=== PATIENT | female | born 1985 | race Caucasian/White ===

== ENCOUNTER 2018-05-22 17:07 | Emergency (ER) | payer OTHER, MEDICAID ==
[~2018-05-22] VITALS: Ht 157.5 cm; Wt 94.8 kg
[2018-05-22 17:21] VITALS: BP 139/73
--- NOTE | 2018-05-22 19:11 | NUR ---
PT AMBULATED TO BED 3
--- NOTE | 2018-05-22 19:12 | NUR ---
PT STATES SHE NEEDS MED REFILL, GEODONE 80MG. PT HAS APPT WITH PSYCHIATRIST 06/05/2018 BUT NEEDS MEDS UNTIL THEN. NO OTHER COMPLAINTS.
[2018-05-22 19:46] VITALS: BP 140/72
--- NOTE | 2018-05-22 19:46 | NUR ---
Patient discharged with v/s stable. Written and verbal after care instructions given and explained. Patient alert, oriented and verbalized understanding of instructions. Ambulatory with steady gait. All questions addressed prior to discharge. ID band removed. Patient advised to follow up with PMD. Rx of ABIGAIL given. Patient educated on indication of medication including possible reaction and side effects. Opportunity to ask questions provided and answered.
== END 2018-05-22 19:46 | disposition home or self-care (01) ==
LOC: MED 17:07
DX: F20.9 Schizophrenia, unspecified (principal); Z76.0 Encounter for issue of repeat prescription
CPT/HCPCS: 99283; 99284

== ENCOUNTER 2018-07-07 09:20 | Emergency (ER) | payer OTHER ==
[~2018-07-07] VITALS: Ht 157.5 cm; Wt 93.9 kg
[2018-07-07 09:32] VITALS: BP 108/66
--- NOTE | 2018-07-07 09:37 | NUR ---
urine cup handed to pt for sample
--- NOTE | 2018-07-07 09:39 | NUR ---
pt ambulated to er bed 03
--- NOTE | 2018-07-07 09:45 | NUR ---
PT BIB SELF TO THE ED WITH THE [facility] C/O FOUL SMELLING DISCHARGE AND PELVIC PAIN. PT HAS HX OF STD: GONORRHEA, CLAMADIA AND TRICHOMONOSIS. STATES OF HAVING DIARRHEA X2 TODAY. DENIES N/V. DENIES RECENT FEVER. DENIES OTHER PROBLEM AT THIS TIME. STATES PAIN OF 7/10. VSS. ER AWARE.
[2018-07-07] MEDS ORDERED: PHENAZOPYRIDINE 100 MG TAB PO ONE (09:50)
--- NOTE | 2018-07-07 10:16 | NUR ---
PT EVALUATED BY EDGAR ROGERS.
[2018-07-07] MEDS ORDERED: cefTRIAXone 250 MG in LIDOCAINE MPF 1% - 5 mL VIAL 0.9 ML IM ONE (10:30)
[2018-07-07] MEDS ORDERED: AZITHROMYCIN 250 MG TAB PO ONE (10:30)
--- NOTE | 2018-07-07 11:53 | NUR ---
Patient discharged with v/s stable. Written and verbal after care instructions given and explained. Patient alert, oriented and verbalized understanding of instructions. Ambulatory with steady gait. All questions addressed prior to discharge. ID band removed. Patient advised to follow up with PMD. Rx of FLAGYL given. Patient educated on indication of medication including possible reaction and side effects. Opportunity to ask questions provided and answered.
[2018-07-07 11:54] VITALS: BP 123/65
[2018-07-09 06:11] LABS: CHLAMYDIA TRACHOMATIS AMP DNA Negative (Negative)
== END 2018-07-07 11:53 | disposition home or self-care (01) ==
LOC: MED 09:20
DX: N89.8 Other specified noninflammatory disorders of vagina (principal); J45.909 Unspecified asthma, uncomplicated; F20.9 Schizophrenia, unspecified; Z20.2 Contact with and (suspected) exposure to infections with a predominantly sexual mode of transmission; Z88.5 Allergy status to narcotic agent; Z88.8 Allergy status to other drugs, medicaments and biological substances
CPT/HCPCS: 36415; 81002; 81025; 87210; 96372; 99283; J0696; J2001; 87491

== ENCOUNTER 2018-07-30 15:22 | Emergency (ER) | payer OTHER ==
[~2018-07-30] VITALS: Ht 157.5 cm; Wt 92.2 kg
[2018-07-30 15:38] VITALS: BP 150/80
--- NOTE | 2018-07-30 15:58 | NUR ---
PT AMB TO RESTROOM FOR URINE SAMPLE
--- NOTE | 2018-07-30 15:59 | NUR ---
33 Y FEMALE BIB FAMILY C/O RASH X 3 WEEKS, GENERALIZED ABDOMINAL PAIN X 2 WEEKS. +ITCHING RASH COVERS ENTIRE BODY. PT STATES SHE WAS SEEN AT AN URGENT CARE 1 WEEK AGO AND WAS SENT HOME WITH A MEDICATION FOR ITCHING. STATES SHE HAS NO RELIEF. PAIN 10/10 ABDOMINAL. LAST BM TODAY DIARRHEA. BOWEL SOUNDS ACTIVE IN ALL 4 QUADRANTS. ABDOMEN SOFT AND ROUND. VSS AT THSI TIME. ALERT AND ORIENTED. BED IS DOWN, LOCKED, BED RAIL X 1, ERMD TO SEE PT. MED HX: BIPOLAR, SCHIZOPHRENIA, ASTHMA
--- NOTE | 2018-07-30 16:22 | NUR ---
DR MONTIEL AT BEDSIDE TO SEE PT
[2018-07-30 16:41] VITALS: BP 152/76
--- NOTE | 2018-07-30 16:41 | NUR ---
Patient discharged with v/s stable. Written and verbal after care instructions given and explained. Patient alert, oriented and verbalized understanding of instructions. Ambulatory with steady gait. All questions addressed prior to discharge. ID band removed. Patient advised to follow up with PMD. Rx of ZOFRAN, PREDNISONE, MOTRIN given. Patient educated on indication of medication including possible reaction and side effects. Opportunity to ask questions provided and answered. PT GIVEN [facility] ADDRESS AND PHONE NUMBER TO FOLLOW UP WITH.
== END 2018-07-30 16:41 | disposition home or self-care (01) ==
LOC: MED 15:22
DX: R21 Rash and other nonspecific skin eruption (principal); R10.13 Epigastric pain; R11.0 Nausea; F20.9 Schizophrenia, unspecified; F17.200 Nicotine dependence, unspecified, uncomplicated; Z88.5 Allergy status to narcotic agent; Z88.8 Allergy status to other drugs, medicaments and biological substances
CPT/HCPCS: 81002; 81025; 99282; 99283

== ENCOUNTER 2018-09-25 13:23 | Emergency (ER) | payer OTHER ==
[~2018-09-25] VITALS: Ht 157.5 cm; Wt 92.5 kg
[2018-09-25 13:53] VITALS: BP 107/62
--- NOTE | 2018-09-25 14:10 | NUR ---
PATIENT AMBULATED TO ER BED 3.
--- NOTE | 2018-09-25 14:15 | NUR ---
pt c/o abnormal vaginal discharge with cottage cheese like secration. pt was worried about STD. reports constipation and mininal nausea without vomiting; SKIN IS PINK/WARM/DRY; AAOX4 WITH EVEN AND STEADY GAIT; PT DENIES ANY FEVER, CP, SOB, OR COUGH AT THIS TIME; PATIENT STATES burning vaginal PAIN OF 5/10 AT THIS TIME; VSS; PATIENT POSITIONED FOR COMFORT; HOB ELEVATED; BEDRAILS UP X1; BED DOWN. ER MD MADE AWARE OF PT STATUS.
--- NOTE | 2018-09-25 15:25 | NUR ---
DR. VACA WITH [facility] PERFORMING PELVIC EXAM AT THE BEDSIDE.
[2018-09-25 15:27] LABS: APPEARANCE,URINE CLEAR (CLEAR); BILIRUBIN,URINE NEGATIVE (NEGATIVE); BLOOD, URINE TRACE-I (NEGATIVE); COLOR,URINE YELLOW (YELLOW); LEUKOCYTE ESTERASE ,URINE 1+ (NEGATIVE); NITRITE, URINE NEGATIVE (NEGATIVE); PH,URINE 5.5 (5.0-9.0); UGLUCOSE NEGATIVE (NEGATIVE)
[2018-09-25 15:41] LABS: BARBITURATE, URINE NEG. ng/ml (NEG <=200); BENZODIAZEPINE, URINE NEG. ng/mL (NEG <=200); CANNABINOID, URINE NEG. ng/mL (NEG <=50); COCAINE, URINE NEG. ng/mL (NEG <=300); OPIATE, URINE NEG. ng/mL (NEG <=2000); PHENCYCLIDINE SCREEN,URINE NEG. ng/mL (NEG <=25)
[2018-09-25] MEDS ORDERED: LEVOFLOXACIN 500 MG TAB PO ONE (15:50)
[2018-09-25] MEDS ORDERED: cefTRIAXone 1,000 MG in LIDOCAINE 1% ***ER ONLY *** 2.1 ML IM ONE (15:50)
[2018-09-25 15:58] LABS: WBC,URINE TOO MANY TO COUNT /HPF (0-5)
[2018-09-25] MEDS ORDERED: LIDOCAINE MPF 1% - 5 mL VIAL 5 ML ONE (16:26)
[2018-09-25] MEDS ORDERED: cefTRIAXone 1,000 MG VIAL ONE (16:26)
[2018-09-25 17:02] VITALS: BP 133/70
[2018-09-27 06:08] LABS: CHLAMYDIA TRACHOMATIS AMP DNA Negative (Negative)
== END 2018-09-25 17:02 | disposition home or self-care (01) ==
LOC: MED 13:23
DX: N89.8 Other specified noninflammatory disorders of vagina (principal); F20.9 Schizophrenia, unspecified; E66.9 Obesity, unspecified; F31.9 Bipolar disorder, unspecified; J45.909 Unspecified asthma, uncomplicated; F17.210 Nicotine dependence, cigarettes, uncomplicated; Z11.59 Encounter for screening for other viral diseases; Z88.6 Allergy status to analgesic agent; Z88.8 Allergy status to other drugs, medicaments and biological substances
CPT/HCPCS: 36415; 80305; 81001; 81025; 87070; 87086; 87186; 87205; 87491; 96372; 99283; J0696; J2001; 99284

== ENCOUNTER 2018-10-01 15:57 | Emergency (ER) | payer OTHER ==
[~2018-10-01] VITALS: Ht 157.5 cm; Wt 90.0 kg
[2018-10-01 16:00] VITALS: BP 118/79
[2018-10-01 19:19] LABS: APPEARANCE,URINE CLOUDY (CLEAR); BILIRUBIN,URINE NEGATIVE (NEGATIVE); BLOOD, URINE NEGATIVE (NEGATIVE); COLOR,URINE YELLOW (YELLOW); LEUKOCYTE ESTERASE ,URINE 1+ (NEGATIVE); NITRITE, URINE NEGATIVE (NEGATIVE); PH,URINE 5.5 (5.0-9.0); UGLUCOSE NEGATIVE (NEGATIVE)
[2018-10-01 19:41] LABS: RBC,URINE 0-5 /HPF (0-5)
[2018-10-01] MEDS: AZITHROMYCIN 250 MG TAB PO ONE (19:41)
[2018-10-01] MEDS: cefTRIAXone 250 MG in LIDOCAINE MPF 1% - 5 mL VIAL 0.9 ML IM ONE (19:42)
[2018-10-01 20:10] VITALS: BP 128/82
[2018-10-03 06:07] LABS: CHLAMYDIA TRACHOMATIS AMP DNA Negative (Negative)
== END 2018-10-01 20:10 | disposition home or self-care (01) ==
LOC: MED 15:57
DX: A59.9 Trichomoniasis, unspecified (principal); N39.0 Urinary tract infection, site not specified; F20.9 Schizophrenia, unspecified; Z11.3 Encounter for screening for infections with a predominantly sexual mode of transmission; Z88.5 Allergy status to narcotic agent; Z88.8 Allergy status to other drugs, medicaments and biological substances
CPT/HCPCS: 36415; 81001; 81025; 87070; 87086; 87210; 87491; 96372; 99283; J0696; J2001; 87205

== ENCOUNTER 2018-10-15 15:46 | Emergency (ER) | payer OTHER ==
[~2018-10-15] VITALS: Ht 157.5 cm; Wt 94.1 kg
[2018-10-15 15:49] VITALS: BP 138/84
--- NOTE | 2018-10-15 15:50 | NUR ---
PATIENT TO ER BED 6.
--- NOTE | 2018-10-15 16:00 | NUR ---
PATIENT IS A 33 Y/O FEMALE WHO PRESENTS TO THE ED FOR MED REFILL. PT STATES THAT SHE TAKES GEODONE 80MG AND NEEDS IT FILLED. PT DENIES PAIN AT THIS TIME. PT DENIES CP, SOB, N/V/D. PT AWAKE AND ALERT, RR EVEN/UNLABORED. PT REPOSITIONED FOR COMFORT, PT SITTING IN CHAIR. ER PROVIDER NOTIFIED. WILL CONTINUE TO MONITOR. PMH---BIPOLAR ALLERGIES--HYDROCODONE, HYDROXYZINE
[2018-10-15 16:51] VITALS: BP 136/84
--- NOTE | 2018-10-15 16:51 | NUR ---
Patient discharged with v/s stable. Written and verbal after care instructions given and explained. Patient alert, oriented and verbalized understanding of instructions. Ambulatory with steady gait. All questions addressed prior to discharge. ID band removed. Patient advised to follow up with PMD. Rx of Nathanael given. Patient educated on indication of medication including possible reaction and side effects. Opportunity to ask questions provided and answered.
== END 2018-10-15 16:51 | disposition home or self-care (01) ==
LOC: MED 15:46
DX: F31.9 Bipolar disorder, unspecified (principal); Z76.0 Encounter for issue of repeat prescription; Z88.5 Allergy status to narcotic agent; Z88.8 Allergy status to other drugs, medicaments and biological substances
CPT/HCPCS: 99283

== ENCOUNTER 2018-10-16 18:53 | Emergency (ER) | payer OTHER ==
[~2018-10-16] VITALS: Ht 157.5 cm; Wt 90.7 kg
[2018-10-16 19:06] VITALS: BP 142/90
--- NOTE | 2018-10-16 19:15 | NUR ---
PT AMBULATED TO THE LOBBY.
--- NOTE | 2018-10-16 20:16 | NUR ---
PT AMBULATED TO BED 06
--- NOTE | 2018-10-16 20:16 | NUR ---
33 Y/O FEMALE PRESENTS TO ED, C/O OF ABDOMINAL BURNING PAIN 12/25. PT STATES PAIN STARTED TWO DAYS AGO AND RADIATES TO STERNUM REGION OF CHEST. BS ACTIVE ON ALL QUDRANTS. ABDOMEN TENDER AND PAIN ON UPPER QUADRANT UPON PALPATION. PT C/O DIFFICULTY AND BURNING SENSATION VOIDING. PT HAS RASH ON BILATERAL ARMS. PT HAS HX OF BIPOLAR, SCHIZOPHRENIA, GHONORRHEA, AND CHLAMYDIA. PT VSS. DR EAST AWARE. WILL CONTINUE TO MONITOR.
--- NOTE | 2018-10-16 21:15 | NUR ---
PT IS AWAKE, LAYING ON BED. FRIEND IS AT BEDSIDE. C/O OF ABDOMINAL PAIN 12/25. PT VSS. DR EAST AWARE. WILL CONTINUE TO MONITOR.
--- NOTE | 2018-10-16 23:15 | NUR ---
PT IS AWAKE, LAYING ON BED. FRIEND AT BEDSIDE. C/O ABDOMINAL PAIN 10/25. PRESENTS FLUSHED. PT VSS. DR EAST AWARE. WILL CONTINUE TO MONITOR.
--- NOTE | 2018-10-17 01:17 | NUR ---
Dr. Henry examining patient.
[2018-10-17 01:32] VITALS: BP 131/71
--- NOTE | 2018-10-17 01:32 | NUR ---
PT DISCHARGED WITH PAPERWORK. NO RX PROVIDED. EDUCATED PT REGARDING DISCHARGE DIAGNOSIS. PT VERBALIZED UNDERSTANDING OF TEACHING. PT VSS. ALL QUESTIONS ANSWERED.
== END 2018-10-17 01:32 | disposition home or self-care (01) ==
LOC: MED 18:53
DX: R21 Rash and other nonspecific skin eruption (principal); R10.9 Unspecified abdominal pain; R51 Headache; F20.9 Schizophrenia, unspecified; Z59.0 Homelessness; F31.9 Bipolar disorder, unspecified; Z88.5 Allergy status to narcotic agent; Z88.8 Allergy status to other drugs, medicaments and biological substances
CPT/HCPCS: 81002; 81025; 99283

== ENCOUNTER 2019-01-16 16:28 | Emergency (ER) | payer MEDICAID, OTHER ==
[~2019-01-16] VITALS: Ht 157.5 cm; Wt 95.3 kg
[2019-01-16 16:34] VITALS: BP 123/72
--- NOTE | 2019-01-16 18:48 | NUR ---
PT AMBULATED TO ER BED 01
--- NOTE | 2019-01-16 18:48 | NUR ---
PT ARRIVED TO ED C/O N, WINTER, STOMACH PAIN X 1 MONTH. PAIN COMES AND GOES and rates pain as 7/10. ABD IS ROUND AND SOFT AND TENDERNESS ON LLQ AND BS ACTIVE IN ALL QUADS. VSS. PT SATTES SHE VERY FATIGUE AND LETHARGIC AT TIMES. PT IS STABLE. NO DISTRESS NOTED. PT STATES SHE HAS WINTER BUT DENIES ANY HEAD INJURY OR TRUAMA. PT ALSO STATES SHE HAS IRREGULAR MENSTRUAL CYCLES. PT ALSO STATES SHE HAS LOSS OF APPETITE.
--- NOTE | 2019-01-16 19:04 | NUR ---
PA AT BEDSIDE.
[2019-01-16] MEDS ORDERED: ONDANSETRON 4 MG ODT PO ONE (19:10)
--- NOTE | 2019-01-16 19:47 | NUR ---
LAB AT BEDSIDE.
[2019-01-16 20:04] LABS: BASOPHILS # (AUTO) 0.1 K/uL (0.00-0.22); BASOPHILS % (AUTO) 0.6 % (0.0-2.0); EOSINOPHILS # (AUTO) 0.1 K/uL (0-0.4); EOSINOPHILS % (AUTO) 1.2 % (0.0-4.0); HEMATOCRIT 41.6 % (36-48); HEMOGLOBIN 13.8 g/dL (12.0-16.0); LYMPHOCYTES # (AUTO) 3.6 K/uL (2.5-16.5); LYMPHOCYTES % (AUTO) 30.2 % (20.5-51.1); MEAN CORPUSCULAR HEMOGLOBIN 31 pg (27-31); MEAN CORPUSCULAR HGB CONC 33 g/dL (33-37); MEAN CORPUSCULAR VOLUME 94.5 fL (80-94); MONOCYTES # (AUTO) 0.9 K/uL (0.8-1.0); MONOCYTES % (AUTO) 7.6 % (1.7-9.3); NEUTROPHILS # (AUTO) 7.3 K/uL (1.8-7.7); NEUTROPHILS % (AUTO) 60.4 % (42.2-75.2); PLATELET COUNT (AUTO) 293 K/uL (140-450); RED CELL DISTRIBUTION WIDTH 12.5 % (11.6-13.7)
[2019-01-16 20:50] LABS: ANION GAP 13.1 (8-16); CARBON DIOXIDE 28.4 mmol/L (21-32); CREATININE 0.9 mg/dL (0.6-1.3); POTASSIUM 3.5 mmol/L (3.5-5.1); TOTAL BILIRUBIN 0.3 mg/dL (0.0-1.0)
[2019-01-16 20:51] LABS: ALBUMIN 3.6 g/dL (3.4-5.0)
--- NOTE | 2019-01-16 20:53 | NUR ---
SPOKE TO BELINDA FROM LAB FOR UPDATE ON CHEMISTRY PANEL. BELINDA SAID WE ARE JUST WAITING ON THE CALCIUM, THYROID HORMONE, T4 RESULTS.
[2019-01-16 21:07] LABS: FREE T4 (FREE THYROXINE) 0.89 ng/dL (0.76-1.46); THYROID STIMULATING HORMONE 1.82 uIU/mL (0.34-3.74)
--- NOTE | 2019-01-16 21:35 | NUR ---
Pt report given to ROLAND YODER. Transfer of care at this time.
[2019-01-16 21:40] VITALS: BP 123/72
--- NOTE | 2019-01-16 21:40 | NUR ---
PT DISCHARGED WITH PAPERWORK. RX CASIMIRO. EDUCATED PT REGARDING MEDICATIONS AND S/E. EDUCATED PT REGARDING D/C DIAGNOSIS AND INSTRUCTIONS. PT VERBALIZED UNDERSTANDING OF TEACHING. TOLD PT TO FOLLOW UP WITH PCP AND WHEN TO RETURN TO ED. PT VSS. ALL QUESTIONS ANSWERED.
== END 2019-01-16 21:40 | disposition home or self-care (01) ==
LOC: MED 16:28
DX: R11.0 Nausea (principal); R53.83 Other fatigue; R51 Headache; Z88.5 Allergy status to narcotic agent; Z88.8 Allergy status to other drugs, medicaments and biological substances; Z91.013 Allergy to seafood
CPT/HCPCS: 36415; 80053; 81002; 81025; 83690; 84439; 84443; 84703; 85025; 93005; 99284; Q0162

== ENCOUNTER 2020-09-17 18:22 | Emergency (ER) | payer MEDICAID ==
[~2020-09-17] VITALS: Ht 157.5 cm; Wt 99.8 kg
[2020-09-17 18:37] VITALS: BP 121/70
--- NOTE | 2020-09-17 18:45 | NUR ---
PATIENT AMBULATED TO BED 1 Addendum: 09/17/20 at 1845 by [email or web address] PATIENT AMBULATED TO BED 3
[2020-09-17] MEDS ORDERED: KETOROLAC 60 MG/2 ML VIAL IM ONE (18:55)
--- NOTE | 2020-09-17 18:56 | NUR ---
35/F presents to ED with c/o of headache. Patient states she received her dose of the Pfizer vaccine on Saturday and has had worsening headache, "mood swings," and states "I cannot sleep." Patient states pain has been radiating down to her right under arm, describes it as sharp 10/10 pain. Patient denies chest pain or shortness of breath, denies nausea, vomiting, or diarrhea. Patient denies blurred vision or dizziness, able to answer questions in full clear sentences, alert and oriented x4.
[2020-09-17] MEDS ORDERED: DIPH25TA53 PO (19:04)
[2020-09-17] MEDS ORDERED: TRAM50TA3 PO (19:04)
--- NOTE | 2020-09-17 19:07 | NUR ---
Pt report given to Julio WATKINS. Transfer of care at this time.
--- NOTE | 2020-09-17 19:18 | NUR ---
Patient discharged with v/s stable. Written and verbal after care instructions given and explained. Patient alert, oriented and verbalized understanding of instructions. Ambulatory with steady gait. All questions addressed prior to discharge. ID band removed. Patient advised to follow up with PMD. Rx of BENADRYL AND TRAMADOL HCL given. Patient educated on indication of medication including possible reaction and side effects. Opportunity to ask questions provided and answered.
[2020-09-17 19:19] VITALS: BP 121/70
== END 2020-09-17 19:18 | disposition home or self-care (01) ==
LOC: MED 18:22
DX: R59.1 Generalized enlarged lymph nodes (principal); R51.9 Headache, unspecified; G47.00 Insomnia, unspecified; J45.909 Unspecified asthma, uncomplicated; F20.9 Schizophrenia, unspecified; Z88.5 Allergy status to narcotic agent; Z88.8 Allergy status to other drugs, medicaments and biological substances; Z79.899 Other long term (current) drug therapy; Z98.890 Other specified postprocedural states
CPT/HCPCS: 96372; 99283; J1885

== ENCOUNTER 2020-11-13 13:22 | Emergency (ER) | payer MEDICAID, SELFPAY ==
[~2020-11-13] VITALS: Ht 157.5 cm; Wt 99.8 kg
[~2020-11-13 13:22] MED LIST: DIPH25TA53 PO; TRAM50TA3 PO
[2020-11-13 13:34] VITALS: BP 110/67
[2020-11-13] MEDS ORDERED: ONDANSETRON 4 MG ODT PO ONE (13:50)
--- NOTE | 2020-11-13 13:58 | NUR ---
35 YO FEMALE BIBS C/O 09/24 ABDOMINAL AND BACK PAIN, +N/V X1DAY. +FATIGUE X1 WEEK. BS [id number], SOFT, TENDER TO LEFT SIDE. SKIN DRY AND INTACT. NO BRUISING OR DISCOLORATION NOTED. PATIENT DENIES CHEST PAIN, SOB, FEVER, CHILLS, DIARRHEA. A&OX4, RR EVEN AND UNLABORED. PMH: BIPOLAR, SCHIZOPHRENIA MED: GEODON ALLERGIES: HYDROCODONE, HYDROXYZINE, SHELLFISH
--- NOTE | 2020-11-13 14:08 | NUR ---
Dr. Butler is evaluating patient at bedside
--- NOTE | 2020-11-13 14:09 | NUR ---
MD PERALES AT BEDSIDE EVALUATING PATIENT
--- NOTE | 2020-11-13 14:09 | NUR ---
Justin lorenz in [facility] - 11/13/20 at 1430 by MED MD PERALES AT BEDSIDE EVALUATING PATIENT
[2020-11-13] MEDS ORDERED: ONDA4TAB PO (14:12)
[2020-11-13] MEDS ORDERED: IMO2 PO (14:12)
--- NOTE | 2020-11-13 14:44 | NUR ---
PARAS COLLECTED AND WALKED TO LAB
--- NOTE | 2020-11-13 14:47 | NUR ---
Patient discharged with v/s stable. Written and verbal after care instructions given and explained. Patient alert, oriented and verbalized understanding of instructions. Ambulatory with steady gait. All questions addressed prior to discharge. ID band removed. Patient advised to follow up with PMD. Rx of LOPERAMIDE, ZOFRAN given. Patient educated on indication of medication including possible reaction and side effects. Opportunity to ask questions provided and answered.
== END 2020-11-13 14:47 | disposition home or self-care (01) ==
LOC: MED 13:22
DX: A08.4 Viral intestinal infection, unspecified (principal); Z20.822 Contact with and (suspected) exposure to COVID-19; R11.2 Nausea with vomiting, unspecified; R19.7 Diarrhea, unspecified; J45.909 Unspecified asthma, uncomplicated; F20.9 Schizophrenia, unspecified; Z79.899 Other long term (current) drug therapy; Z88.5 Allergy status to narcotic agent; Z88.8 Allergy status to other drugs, medicaments and biological substances
CPT/HCPCS: 81002; 81025; 99283; Q0162; U0003

== ENCOUNTER 2020-11-24 10:19 | Emergency (ER) | payer MEDICAID, SELFPAY ==
[~2020-11-24] VITALS: Ht 157.5 cm; Wt 98.4 kg
[~2020-11-24 10:19] MED LIST changes: +IMO2 PO; +ONDA4TAB PO
--- NOTE | 2020-11-24 10:40 | NUR ---
PT AMBULATED TO BED 4
[2020-11-24 10:44] VITALS: BP 135/73
--- NOTE | 2020-11-24 11:05 | NUR ---
35 YO F C/O PELVIC PAIN WITH VAGINAL DISCHARGE, PT STATED FEELING ITCHY. NO C/O OF PAIN DURING URINATION, BUT STATED SHE DOES FEEL A BURNING SENSATION. PT STATED SYMPTOMS STARTED X1 WEEK AGO AFTER HAVING UNPROTECTED SEX. PT STATED "DISCHARGE IS YELLOW/GREEN IN COLOR WITH AN ODOR." PMH: BIPOLAR, SCHIZOPHRENIA, ASTHMA, PID RX: GEODON, ALBUTEROL ALLERGIES: HYDROCODONE, HYDROXYZINE, SHELLFISH
[2020-11-24] MEDS ORDERED: DOXYCYCLINE 100 MG CAP PO SCH (12:05)
[2020-11-24] MEDS ORDERED: cefTRIAXone 500 MG in LIDOCAINE MPF 1% 1 ML IM ONE (12:05)
[2020-11-24] MEDS ORDERED: LIDOCAINE MPF 1% 5 ML ONE (12:17)
[2020-11-24] MEDS ORDERED: cefTRIAXone 500 MG VIAL ONE (12:17)
--- NOTE | 2020-11-24 13:08 | NUR ---
PT PROVIDED WITH CRACKERS BEDSIDE. VITAL SIGNS CURRENTLY STABLE AND BED IN LOWEST POSITION. SIDERAIL X1 UP. WILL CONTINUE TO MONITOR
[2020-11-24] MEDS ORDERED: DOXY-487 PO (14:02)
[2020-11-24] MEDS ORDERED: METR-520 PO (14:02)
[2020-11-24 14:11] VITALS: BP 133/71
--- NOTE | 2020-11-24 14:12 | NUR ---
Patient discharged with v/s stable. Written and verbal after care instructions given and explained. Patient alert, oriented and verbalized understanding of instructions. Ambulatory with steady gait. All questions addressed prior to discharge. ID band removed. Patient advised to follow up with PMD. Rx of FLAGYL AND DOXYCYCLINE HYCLATE given. Patient educated on indication of medication including possible reaction and side effects. Opportunity to ask questions provided and answered.
== END 2020-11-24 14:12 | disposition home or self-care (01) ==
LOC: MED 10:19
DX: N76.0 Acute vaginitis (principal); B96.89 Other specified bacterial agents as the cause of diseases classified elsewhere; J45.909 Unspecified asthma, uncomplicated; F31.9 Bipolar disorder, unspecified; F20.9 Schizophrenia, unspecified; Z79.2 Long term (current) use of antibiotics; Z79.899 Other long term (current) drug therapy; Z79.891 Long term (current) use of opiate analgesic; Z88.5 Allergy status to narcotic agent; Z91.013 Allergy to seafood; Z88.8 Allergy status to other drugs, medicaments and biological substances
CPT/HCPCS: 36415; 87070; 87210; 87491; 96372; 99283; J0696; J2001